=== PATIENT | male | born 1960 | race Hispanic/Latino ===

== ENCOUNTER 2018-11-06 12:24 | Emergency (ER) | payer OTHER ==
[2018-11-06 12:43] VITALS: RESP 20; O2SAT 99
[2018-11-06] MEDS ORDERED: Heparin 25,000units in D5W 25,000 UNITS/250 ML BAG IV SCH ×2 (12:45→12:54)
[2018-11-06] MEDS ORDERED: Sodium Chloride 0.9% 1,000 ML IV SCH (12:45)
[2018-11-06] MEDS ORDERED: Heparin 25,000units in D5W 25,000 UNITS/250 ML BAG IV ONE (12:53)
[2018-11-06 12:58] LABS: BASO % 0.6 % (0.0-2.0); EOS # 0.1 K/uL (0.0-0.7); EOS % 1.7 % (0.0-4.0); HEMOGLOBIN 15.9 g/dL (12.0-18.0); LYMPH # 1.8 K/uL (1.0-4.3); LYMPH % 28.3 % (20.0-40.0); MEAN CORPUSCULAR HEMOGLOBIN 30.1 pg (27.0-31.0); MEAN CORPUSCULAR HGB CONC 34.1 g/dL (33.0-37.0); MEAN PLATELET VOLUME 9.8 fl (7.2-11.7); MONO % 15.2 % (0.0-10.0); NEUT # 3.4 K/uL (1.8-7.0); NEUT % 54.2 % (50.0-75.0); NRBC % 0.1 % (0.0-0.0); RBC 5.28 Mil/uL (4.40-5.90); RED CELL DISTRIBUTION WIDTH 13.2 % (11.5-14.5); WHITE BLOOD COUNT 6.3 K/uL (4.8-10.8)
--- NOTE | 2018-11-06 13:05 | ED PDOC ---
HPI: Chest Pain Time Seen by Provider: 11/06/18 12:36 Chief Complaint (Nursing): Chest Pain Chief Complaint (Provider): Chest Pain History Per: Patient History/Exam Limitations: no limitations Onset/Duration Of Symptoms: Mins Current Symptoms Are (Timing): Still Present Additional Complaint(s): Patient is a 57 y/o male with no significant PMHx who presents to the ED for evaluation of chest pain about thirty minutes prior to arrival. Patient states he was trying to bench press when he started feeling pressure on the left upper wall of his chest. Patient admits to anxiety. Patient denies change in pain during movement, shortness of breath, pleurisy, numbness or tingling, and radiation to jaw, arm, or back. PCP: None Provided Past Medical History Reviewed: Historical Data, Nursing Documentation, Vital Signs Vital Signs: Last Vital Signs Temp 97.8 F 11/06/18 12:43 Pulse 72 11/06/18 12:43 Resp 20 11/06/18 12:43 BP 149/84 11/06/18 12:43 Pulse Ox 99 11/06/18 12:43 - Medical History PMH: No Chronic Diseases - Surgical History Surgical History: No Surg Hx - Family History Family History: States: No Known Family Hx Denies: CAD - Social History Current smoker - smoking cessation education provided: No Ex-Smoker (has not smoked in the last 12 months): No Alcohol: None Drugs: Denies - Allergies Allergies/Adverse Reactions: Allergies Allergy/AdvReac Type Severity Reaction Status Date / Time No Known Allergies Allergy Verified 11/06/18 12:39 Review of Systems ROS Statement: Except As Marked, All Systems Reviewed And Found Negative (as per HPI) Cardiovascular: Positive for: Chest Pain (pressure on left, upper wall) Respiratory: Negative for: Shortness of Breath (or pleurisy) Musculoskeletal: Negative for: Other (radiating pain to jaw, arm, or back) Neurological: Negative for: Numbness (or tingling) Psych: Positive for: Anxiety Physical Exam - Reviewed Nursing Documentation Reviewed: Yes Vital Signs Reviewed: Yes - Physical Exam Appears: Positive for: In Acute Distress (painful) Cardiovascular/Chest: Positive for: Regular Rate, Rhythm, Other (Pulses strong bilaterally) Respiratory: Positive for: Normal Breath Sounds Neurologic/Psych: Positive for: Alert, Oriented, Mood/Affect (anxious). Negative for: Motor/Sensory Deficits - Laboratory Results Result Diagrams: 11/06/18 12:40 - ECG Interpretation Of Abn EKG: ST elevations in the inferior leads as well as T wave depression in leads A, V, L Rate: 52 O2 Sat by Pulse Oximetry: 99 (RA) Pulse Ox Interpretation: Normal - Critical Care Total Time (In Min): 40 (Code Heart ) Medical Decision Making Medical Decision Making: Time: 1238 Impression: St elevation, MD Plan: Type and Screen (x2) EKG BNP BMP Troponin I CBC D Dimer PTT Prothrombin Time CXR Aspirin 325 mg PO Heparin 250,000 units in 250 ml IV Heparin 4,000 units IVP IV Fluids Shank Stapler Nursing Communication Time: 1245 -CODE HEART -Discussed with , code heart finance mgr. Patient to be transferred to labeling strategist. Time: 1258 Waiting for ambulance. Time: 1310 EMS arrived. Preparing for transfer. Time: 1311 Patient left for transfer. Scribe Attestation: Documented by Schuyler Chen, acting as a scribe for Iman Chen MD. Provider Scribe Attestation: All medical record entries made by the Scribe were at my direction and personally dictated by me. I have reviewed the chart and agree that the record accurately reflects my personal performance of the history, physical exam, medical decision making, and the department course for this patient. I have also personally directed, reviewed, and agree with the discharge instructions and disposition. Disposition - Disposition Forms: [employer] (Serbian)
[2018-11-06 13:07] VITALS: PULSE 52
[2018-11-06 13:15] LABS: PROTHROMBIN TIME 11.1 Seconds (9.8-13.1)
[2018-11-06 13:18] LABS: PARTIAL THROMBOPLASTIN TIME 31.5 Seconds (25.6-37.1)
[2018-11-06 13:19] VITALS: BP 168/75; TEMP 99.4
[2018-11-06 13:21] LABS: D DIMER < 200 ng/mlDDU (0-230)
[2018-11-06 13:36] LABS: BLOOD UREA NITROGEN 32 mg/dl (9-20); CALCIUM 9.7 mg/dL (8.4-10.2); GFR NON-AFRICAN AMERICAN > 60
[2018-11-06 13:49] LABS: B-TYPE NATRIURETIC PEPTIDE 34.2 pg/ml (0-900)
--- NOTE | 2018-11-06 15:11 | RAD ---
Date of service: 11/06/2018 PROCEDURE: CHEST RADIOGRAPH, 1 VIEW HISTORY: chest pain COMPARISON: None available. FINDINGS: LUNGS: Clear. PLEURA: No pneumothorax or pleural fluid seen. CARDIOVASCULAR: No aortic atherosclerotic calcification present. Normal. OSSEOUS STRUCTURES: No significant abnormalities. VISUALIZED UPPER ABDOMEN: Normal. OTHER FINDINGS: None. IMPRESSION: No active disease.
--- NOTE | 2018-11-06 21:50 | CARD ---
APPROVED REPORT Date of service: 11/06/2018 EKG Measurement Heart [id number] <Conclusion> Sinus bradycardia ST elevation, consider inferior injury or acute infarct ACUTE PR / STEMI Abnormal ECG
== END 2018-11-06 13:11 | disposition short-term general hospital (02) ==
LOC: H.ER 12:24
DX: I21.9 Acute myocardial infarction, unspecified (principal)
CPT/HCPCS: 71045; 80048; 83880; 84484; 85025; 85378; 85610; 85730; 86850; 86900; 93005; 96374; 99285; J1644; J7030